=== PATIENT | female | born 1955 | race Caucasian/White ===

== ENCOUNTER 2017-04-04 17:52 | Emergency (ER) | payer MEDICAID ==
[~2017-04-04] VITALS: Ht 162.6 cm; Wt 76.0 kg
[~2017-04-04 17:52] MED LIST: ASPI-515 PO; ATOR20TA9 PO; CETI10TA18 PO; GABA-826 PO; HYDR25TA6 PO; IBUP100T6 PO; LISI-170 PO; METF500T4 PO; METH500T7 PO; METO-99 PO; OXYC-302 PO; RANI150T4 PO; TIZA2TAB PO
[2017-04-04 17:53] VITALS: BP 156/88
== END 2017-04-04 18:39 | disposition home or self-care (01) ==
LOC: ED 18:33
DX: R05 Cough (principal); E78.00 Pure hypercholesterolemia, unspecified; E11.9 Type 2 diabetes mellitus without complications; I10 Essential (primary) hypertension
CPT/HCPCS: 71046; 99284

== ENCOUNTER 2019-01-04 17:13 | Emergency (ER) | payer MEDICAID ==
[~2019-01-04] VITALS: Ht 162.6 cm; Wt 75.6 kg
[~2019-01-04 17:13] MED LIST changes: +ATOR20TA37 PO; -ATOR20TA9 PO; +DULO30CA2 PO; +METF500T17 PO; -METF500T4 PO; +METO25TA35 PO; -TIZA2TAB PO; +TIZA2TAB2 PO
[2019-01-04 17:22] VITALS: BP 171/100
[2019-01-04] MEDS ORDERED: HYDROcodone/APAP 5/325 TABLET PO ONE (18:30)
[2019-01-04] MEDS ORDERED: HYDROcodone/APAP 5/325 TABLET ONE (18:37)
== END 2019-01-04 19:10 | disposition home or self-care (01) ==
LOC: ED 19:03
DX: A69.1 Other Vincent's infections (principal); E11.9 Type 2 diabetes mellitus without complications; E78.00 Pure hypercholesterolemia, unspecified; I10 Essential (primary) hypertension
CPT/HCPCS: 99282

== ENCOUNTER 2019-03-08 12:30 | Emergency (ER) | payer MEDICAID ==
[~2019-03-08] VITALS: Ht 162.6 cm; Wt 74.4 kg
[2019-03-08] MEDS ORDERED: ACETAMINOPHEN 325 MG TABLET PO ONE (13:00)
[2019-03-08 13:25] LABS: RAPID INFLUENZA A POSITIVE (Negative); RAPID INFLUENZA B Negative (Negative)
[2019-03-08 13:28] LABS: ALBUMIN 3.6 g/dL (3.4-5.0); ANION GAP 11 mmol/L (5-15); CALCIUM 8.7 mg/dL (8.5-10.1); CHLORIDE 98 mmol/L (98-107)
[2019-03-08 13:31] LABS: ALANINE AMINOTRANSFERASE 97 U/L (12-78); ALKALINE PHOSPHATASE 116 U/L (45-117); BILIRUBIN,TOTAL 0.5 mg/dL (0.2-1.0); CREATININE 1.77 mg/dL (0.55-1.02); TOTAL PROTEIN 7.9 g/dL (6.4-8.2)
[2019-03-08 14:03] LABS: BASOPHILS # (AUTO) 0.01 x10^3/uL (0-0.1); BASOPHILS % (AUTO) 0 % (0-1); EOSINOPHILS % (AUTO) 0 % (1-7); LYMPHOCYTES # (AUTO) 1.38 x10^3/uL (1-3.4); LYMPHOCYTES % (AUTO) 27 % (22-44); MD NO; MEAN CORPUSCULAR HEMOGLOBIN 31.5 pg (27.0-34.8); MEAN CORPUSCULAR HGB CONC 33.5 g/dL (32.4-35.8); MEAN PLATELET VOLUME 9.1 fL (7.4-10.4); MONOCYTES # (AUTO) 0.27 x10^3/uL (0.2-0.8); MONOCYTES % (AUTO) 5 % (2-9); NEUTROPHILS # (AUTO) 3.45 x10^3/uL (1.8-6.8); NEUTROPHILS % (AUTO) 68 % (42-75); PLATELET COUNT 126 x10^3/uL (130-400); RED BLOOD COUNT 5.85 x10^6/uL (3.82-5.3); RED CELL DISTRIBUTION WIDTH 14.5 % (9.6-15.2)
--- NOTE | 2019-03-08 14:15 | NUR ---
Pt to 40 from lobby. Droplet precautions IP.
[2019-03-08] MEDS ORDERED: ACETAMINOPHEN 325 MG TABLET ONE (14:36)
[2019-03-08 14:44] VITALS: BP 118/59
--- NOTE | 2019-03-08 14:46 | NUR ---
TYLENOL GIVEN PER ERP ORDER. BP CUFF AND PULSE OX IN PLACE. VS UPDATED IN COMPUTER. LAB AND XR RESULTS EXPLAINED TO PT, ALL QUESTIONS ANSWERED. CALL LIGHT WITHIN REACH.
== END 2019-03-08 15:24 | disposition home or self-care (01) ==
LOC: ED 15:10
DX: J10.1 Influenza due to other identified influenza virus with other respiratory manifestations (principal); I10 Essential (primary) hypertension; E11.9 Type 2 diabetes mellitus without complications; E78.00 Pure hypercholesterolemia, unspecified
CPT/HCPCS: 36415; 71046; 80053; 85025; 87400; 99284

== ENCOUNTER 2019-03-19 15:33 | Emergency (ER) | payer MEDICAID ==
[~2019-03-19] VITALS: Ht 162.6 cm; Wt 70.1 kg
[2019-03-19] MEDS ORDERED: MORPHINE SULFATE 4 MG/ML, 1ML ONE ×2 (18:25→20:57)
[2019-03-19] MEDS ORDERED: KETOROLAC 30 MG/1 ML ONE (18:25)
[2019-03-19] MEDS ORDERED: ONDANSETRON 2MG/ML, 2ML ONE (18:25)
[2019-03-19 18:28] LABS: MEAN CORPUSCULAR HEMOGLOBIN 31.3 pg (27.0-34.8); MEAN CORPUSCULAR HGB CONC 33.2 g/dL (32.4-35.8); MEAN CORPUSCULAR VOLUME 94.4 fL (80-100); MEAN PLATELET VOLUME 8.1 fL (7.4-10.4); PLATELET COUNT 324 x10^3/uL (130-400); RED BLOOD COUNT 4.67 x10^6/uL (3.82-5.3); RED CELL DISTRIBUTION WIDTH 14.2 % (9.6-15.2)
[2019-03-19] MEDS ORDERED: ONDANSETRON 2MG/ML, 2ML IVPush ONE (18:30)
[2019-03-19] MEDS ORDERED: SODIUM CHLORIDE FLUSH 10ML SYR IVF ONE (18:30)
[2019-03-19] MEDS ORDERED: KETOROLAC 30 MG/1 ML IVPush ONE (18:30)
[2019-03-19] MEDS ORDERED: SODIUM CHLORIDE 0.9% 1,000ML IVBOLUS ONE (18:30)
[2019-03-19] MEDS: MORPHINE SULFATE 4 MG/ML, 1ML IVPush PRN ×2 (18:42→21:02)
[2019-03-19 18:43] LABS: ALBUMIN 2.6 g/dL (3.4-5.0); ANION GAP 7 mmol/L (5-15); CALCIUM 9.2 mg/dL (8.5-10.1); CHLORIDE 104 mmol/L (98-107)
[2019-03-19 18:51] LABS: ALANINE AMINOTRANSFERASE 48 U/L (12-78); ALKALINE PHOSPHATASE 108 U/L (45-117); BILIRUBIN,TOTAL 0.7 mg/dL (0.2-1.0); CREATININE 1.02 mg/dL (0.55-1.02); TROPONIN I < 0.015 ng/mL (0.000-0.045)
[2019-03-19 18:55] LABS: MD YES
[2019-03-19] MEDS ORDERED: AZITHROMYCIN 500 MG in SODIUM CHLORIDE 0.9% 250 ML IVPB ONE (19:00)
[2019-03-19] MEDS ORDERED: CEFTRIAXONE PMX 1GM/50ML 50 ML IVPB ONE (19:00)
[2019-03-19 19:01] LABS: BAND#(MANUAL) 0.47 x10^3/uL; BANDS%(MANUAL) 3 % (0-7); EOS#(MANUAL) 0.16 x10^3/uL (0.0-0.4); EOS% (MANUAL) 1 % (1-7); LYMPH#(MANUAL) 1.71 x10^3/uL (1-3.4); LYMPHS% (MANUAL) 11 % (22-44); MONOS#(MANUAL) 0.47 x10^3/uL (0.3-2.7); MONOS% (MANUAL) 3 % (2-9); SEG#(MANUAL) 12.71 x10^3/uL (1.8-6.8); SEGS% (MANUAL) 82 % (42-75)
[2019-03-19 19:02] LABS: <PLATELET ESTIMATE> ADEQUATE; <RBC MORPHOLOGY> NORMAL; LARGE PLATELETS 1+
[2019-03-19] MEDS ORDERED: CEFTRIAXONE PMX 1GM/50ML 50 ML ONE (19:28)
[2019-03-19] MEDS ORDERED: POTASSIUM CHLORIDE 20 MEQ TAB.ER.PRT PO ONE (19:30)
[2019-03-19] MEDS ORDERED: POTASSIUM CHLORIDE 20 MEQ TAB.ER.PRT ONE (19:42)
[2019-03-19 20:13] LABS: CULTURE INDICATED? YES; MICROSCOPIC INDICATED
[2019-03-19 20:53] VITALS: BP 104/57
--- NOTE | 2019-03-19 21:02 | NUR ---
REPORT FROM ELISA MCADAMS. PT SITTING UP IN [facility] NOTED. IV ABX CONTINUES TO INFUSE. PT REPORTS 08/30 PAIN. MEDICATED PER EMAR. AWAITING ABX TO FINISH FOR DC.
--- NOTE | 2019-03-19 21:24 | NUR ---
PT REPORTS IMPROVEMENT IN PAIN, 3/10. SPO2 >90% ON RA. RR WNL. DC EDUCATION PROVIDED, PT DEMONSTRATES UNDERSTANDING. PT AMBULATED STEADILY TO DC W RN. DAUGHTER TO TRANSPORT PT HOME.
== END 2019-03-19 21:26 | disposition home or self-care (01) ==
LOC: ED 20:30
DX: J10.08 Influenza due to other identified influenza virus with other specified pneumonia (principal); J15.9 Unspecified bacterial pneumonia; I10 Essential (primary) hypertension; E11.9 Type 2 diabetes mellitus without complications; E78.00 Pure hypercholesterolemia, unspecified; Z86.73 Personal history of transient ischemic attack (TIA), and cerebral infarction without residual deficits; Z87.891 Personal history of nicotine dependence
CPT/HCPCS: 36415; 71045; 80053; 81001; 83605; 84484; 85025; 87040; 87086; 93005; 96365; 96366; 96368; 96375; 96376; 99284; J0456; J0696; J1885; J2270; J2405; J7030; J7050

== ENCOUNTER 2019-05-21 17:06 | Inpatient (IN) | payer MEDICAID ==
[~2019-05-21] VITALS: Ht 162.6 cm; Wt 73.4 kg
--- NOTE | 2019-05-21 18:21 | NUR ---
UTILITY LOCATOR: PT TO ROOM FORM LOBBY
--- NOTE | 2019-05-21 18:23 | NUR ---
PT UP SELF WITH STEADY GAIT TO RR TO PROVIDE UA SAMPLE.
[2019-05-21] MEDS ORDERED: OXYC-302 PO (18:35)
[2019-05-21] MEDS ORDERED: MORPHINE SULFATE 4 MG/ML, 1ML ONE ×2 (18:39→20:18)
[2019-05-21] MEDS ORDERED: ONDANSETRON 2MG/ML, 2ML ONE (18:39)
[2019-05-21] MEDS: MORPHINE SULFATE 4 MG/ML, 1ML IVPush PRN ×2 (18:40→20:21)
--- NOTE | 2019-05-21 18:47 | NUR ---
PT TO ED FOR ABD PAIN AND BLOODY STOOL X4 DAYS. PT INITIALLY THOUGHT SHE WAS CONSTIPATED AND TOOK 2 DULCOLAX WTIH NO RELIEF. PT THEN ATE 2 PIECES OF TOAST AND COFFEE AND PROCEDED TO HAVE BRBPR WTIH LOOSE STOOL. PT ABLE TO AMBULATE WITHOUT ASSISTANCE, BUT UNCHED OVER IN PAIN. PT CONNECTED TO ALL MONITORS. VSS. EDPA AMAN AND EDMD JEANETTE TO BS FOR ASSESSMENT. ORDERS RECEIVED. PIV ESTABLISHED AND LABS DRAWN AND SENT. UA SAMPLE COLELCTED AND SENT. PT MEDICATED PER APR WITH REPORTED DECREASE IN PAIN. AWAITING IMAGING AND RESULTS.
[2019-05-21 18:49] LABS: MEAN CORPUSCULAR HEMOGLOBIN 31.9 pg (27.0-34.8); MEAN CORPUSCULAR HGB CONC 33.6 g/dL (32.4-35.8); MEAN CORPUSCULAR VOLUME 94.8 fL (80-100); MEAN PLATELET VOLUME 8.7 fL (7.4-10.4); PLATELET COUNT 195 x10^3/uL (130-400); RED CELL DISTRIBUTION WIDTH 14.8 % (9.6-15.2)
[2019-05-21 18:51] LABS: MICROSCOPIC NOT IND
[2019-05-21 18:54] LABS: MD YES
[2019-05-21 18:56] LABS: ALANINE AMINOTRANSFERASE 25 U/L (12-78); ALBUMIN 3.3 g/dL (3.4-5.0); ANION GAP 6 mmol/L (5-15); CALCIUM 8.9 mg/dL (8.5-10.1); CHLORIDE 98 mmol/L (98-107); CREATININE 0.99 mg/dL (0.55-1.02)
[2019-05-21 18:58] LABS: CULTURE INDICATED? NO
[2019-05-21 18:59] LABS: ALKALINE PHOSPHATASE 86 U/L (45-117); BILIRUBIN,TOTAL 0.5 mg/dL (0.2-1.0); TOTAL PROTEIN 7.5 g/dL (6.4-8.2)
[2019-05-21] MEDS ORDERED: SODIUM CHLORIDE FLUSH 10ML SYR IVF ONE (19:00)
[2019-05-21] MEDS ORDERED: SODIUM CHLORIDE 0.9% 1,000ML IVBOLUS ONE (19:00)
[2019-05-21] MEDS ORDERED: ONDANSETRON 2MG/ML, 2ML IVPush ONE (19:00)
--- NOTE | 2019-05-21 19:05 | NUR ---
REPORT TO ELISA LABOY.
--- NOTE | 2019-05-21 19:06 | NUR ---
Received report and assumed patient care. Provider informed by previous RN that patient is tolerating PO fluids at the time. civil technician at bedside, awaiting imaging.
[2019-05-21] MEDS ORDERED: OMNIPAQUE 350 MG/ML, 100ML BOTTLE ONE (19:21)
[2019-05-21] MEDS ORDERED: POTASSIUM CHLORIDE 20 MEQ in SODIUM CHLORIDE 0.9% 250 ML IV ONE (19:30)
[2019-05-21 20:01] LABS: BAND#(MANUAL) 0.37 x10^3/uL; BANDS%(MANUAL) 2 % (0-7); BASOS#(MANUAL) 0.19 x10^3/uL (0-0.1); BASOS% (MANUAL) 1 % (0-1); LYMPH#(MANUAL) 3.53 x10^3/uL (1-3.4); LYMPHS% (MANUAL) 19 % (22-44); MONOS#(MANUAL) 1.49 x10^3/uL (0.3-2.7); MONOS% (MANUAL) 8 % (2-9); SEG#(MANUAL) 13.02 x10^3/uL (1.8-6.8); SEGS% (MANUAL) 70 % (42-75)
[2019-05-21 20:02] LABS: <PLATELET ESTIMATE> ADEQUATE; <PLT MORPHOLOGY> NORMAL PLT MORPH; <RBC MORPHOLOGY> NORMAL
[2019-05-21] MEDS ORDERED: MORPHINE SULFATE 4 MG/ML, 1ML IVPush PRN (20:30)
[2019-05-21] MEDS ORDERED: METRONIDAZOLE PMX 500MG/100ML 100 ML IV ONE (20:30)
[2019-05-21] MEDS ORDERED: ONDANSETRON 2MG/ML, 2ML IVPush PRN (20:30)
[2019-05-21] MEDS ORDERED: CIPROFLOXACIN/PMX 400MG/200ML 200 ML IV ONE (20:30)
[2019-05-21] MEDS ORDERED: CIPROFLOXACIN/PMX 400MG/200ML 200 ML ONE (21:18)
[2019-05-21] MEDS ORDERED: METRONIDAZOLE PMX 500MG/100ML 100 ML ONE (21:18)
--- NOTE | 2019-05-21 21:23 | NUR ---
RN to bedside, initiated second peripheral iv. Initiated luiza. Patient then provided with additional analgesic medication. New orders placed for intravenous antibiotics. RN returned to initiate but patient required visit to bathroom. Still states does not need to provide stool. Awaiting admission bed.
--- NOTE | 2019-05-21 21:28 | NUR ---
PER DR. OBRIEN NO COVID TESTING NEEDED FOR THIS PT.
[2019-05-21] MEDS ORDERED: ACETAMINOPHEN 325 MG TABLET PO PRN (21:30)
[2019-05-21] MEDS ORDERED: LABETALOL 5MG/ML, 20ML IVPush PRN (21:30)
[2019-05-21] MEDS ORDERED: CEFTRIAXONE PMX 1GM/50ML 50 ML IV SCH (21:30)
[2019-05-21 21:49] LABS: HCT (SEDRATE) 44.6 % (34.6-47.8)
[2019-05-21 22:30] VITALS: BP 113/74
[2019-05-21] MEDS ORDERED: SODIUM PHOSPHATE 10 MMOL in SODIUM CHLORIDE 0.9% 500 ML IV ONE (23:00)
[2019-05-21] MEDS: VANCOMYCIN 50 MG/ML ORAL SUSP PO SCH (23:13)
[2019-05-21] MEDS: POTASSIUM CHLORIDE 20 MEQ in LACTATED RINGERS 1,000 ML IV SCH (23:33)
[2019-05-21] MEDS: CIPROFLOXACIN/PMX 400MG/200ML 200 ML IV SCH (23:34)
[2019-05-21] MEDS: METRONIDAZOLE PMX 500MG/100ML 100 ML IV SCH (23:36)
[2019-05-22] MEDS: morphine SULFATE 10 MG/ML, 1ML IVPush PRN ×6 (01:17→22:10)
[2019-05-22 01:21] VITALS: BP 112/69
[2019-05-22] MEDS ORDERED: METRONIDAZOLE PMX 500MG/100ML 100 ML IV SCH (04:00)
[2019-05-22] MEDS ORDERED: POTASSIUM CHLORIDE 40 MEQ in SODIUM CHLORIDE 0.9% 500 ML IV ONE ×2 (04:00→06:00)
[2019-05-22] MEDS: VANCOMYCIN 50 MG/ML ORAL SUSP PO SCH ×4 (05:03→22:09)
[2019-05-22 05:44] LABS: BASOPHILS # (AUTO) 0.03 x10^3/uL (0-0.1); BASOPHILS % (AUTO) 0 % (0-1); EOSINOPHILS # (AUTO) 0.12 x10^3/uL (0-0.4); EOSINOPHILS % (AUTO) 1 % (1-7); LYMPHOCYTES # (AUTO) 2.23 x10^3/uL (1-3.4); LYMPHOCYTES % (AUTO) 19 % (22-44); MD NO; MEAN CORPUSCULAR HEMOGLOBIN 32.1 pg (27.0-34.8); MEAN CORPUSCULAR HGB CONC 33.9 g/dL (32.4-35.8); MEAN CORPUSCULAR VOLUME 94.7 fL (80-100); MEAN PLATELET VOLUME 8.7 fL (7.4-10.4); MONOCYTES # (AUTO) 0.61 x10^3/uL (0.2-0.8); MONOCYTES % (AUTO) 5 % (2-9); NEUTROPHILS # (AUTO) 9.07 x10^3/uL (1.8-6.8); NEUTROPHILS % (AUTO) 75 % (42-75); PLATELET COUNT 153 x10^3/uL (130-400); RED BLOOD COUNT 4.15 x10^6/uL (3.82-5.3); RED CELL DISTRIBUTION WIDTH 14.8 % (9.6-15.2)
[2019-05-22 05:53] LABS: ALANINE AMINOTRANSFERASE 62 U/L (12-78); ALBUMIN 2.5 g/dL (3.4-5.0); ANION GAP 6 mmol/L (5-15); CALCIUM 7.8 mg/dL (8.5-10.1); CHLORIDE 108 mmol/L (98-107); CREATININE 0.68 mg/dL (0.55-1.02)
[2019-05-22 05:55] LABS: ALKALINE PHOSPHATASE 82 U/L (45-117); BILIRUBIN,TOTAL 0.6 mg/dL (0.2-1.0); TOTAL PROTEIN 5.7 g/dL (6.4-8.2)
[2019-05-22] MEDS: METRONIDAZOLE PMX 500MG/100ML 100 ML IV SCH ×2 (07:30→16:13)
[2019-05-22] MEDS: DULOXETINE 30 MG CAPSULE.DR PO SCH (08:23)
[2019-05-22 09:00] VITALS: BP 106/69
[2019-05-22] MEDS: CIPROFLOXACIN/PMX 400MG/200ML 200 ML IV SCH ×2 (11:32→23:42)
[2019-05-22] MEDS: POTASSIUM CHLORIDE 20 MEQ in LACTATED RINGERS 1,000 ML IV SCH ×2 (11:32→20:41)
[2019-05-22] MEDS: ONDANSETRON 2MG/ML, 2ML IVPush PRN ×2 (11:43→20:42)
[2019-05-22 15:22] VITALS: BP 125/81
[2019-05-22 16:01] LABS: HCT (SEDRATE) 41.4 % (34.6-47.8)
[2019-05-22 19:29] VITALS: BP 128/79
[2019-05-22] MEDS ORDERED: POTASSIUM CHLORIDE 20 MEQ in SODIUM CHLORIDE 0.9% 250 ML IV ONE (21:00)
[2019-05-23] MEDS: METRONIDAZOLE PMX 500MG/100ML 100 ML IV SCH ×3 (00:18→16:59)
[2019-05-23 00:56] VITALS: BP 126/84
[2019-05-23] MEDS: morphine SULFATE 10 MG/ML, 1ML IVPush PRN ×5 (02:59→20:02)
[2019-05-23] MEDS: VANCOMYCIN 50 MG/ML ORAL SUSP PO SCH ×2 (04:18→11:44)
[2019-05-23 06:21] LABS: BASOPHILS # (AUTO) 0.03 x10^3/uL (0-0.1); BASOPHILS % (AUTO) 0 % (0-1); EOSINOPHILS % (AUTO) 1 % (1-7); LYMPHOCYTES % (AUTO) 20 % (22-44); MD NO; MEAN CORPUSCULAR HEMOGLOBIN 31.9 pg (27.0-34.8); MEAN CORPUSCULAR HGB CONC 33.1 g/dL (32.4-35.8); MEAN CORPUSCULAR VOLUME 96.4 fL (80-100); MEAN PLATELET VOLUME 8.5 fL (7.4-10.4); MONOCYTES % (AUTO) 6 % (2-9); NEUTROPHILS # (AUTO) 7.92 x10^3/uL (1.8-6.8); NEUTROPHILS % (AUTO) 73 % (42-75); PLATELET COUNT 169 x10^3/uL (130-400); RED CELL DISTRIBUTION WIDTH 14.3 % (9.6-15.2)
[2019-05-23 06:30] LABS: OCCULT BLOOD POSITIVE (NEGATIVE)
[2019-05-23 06:33] LABS: ANION GAP 5 mmol/L (5-15); CALCIUM 7.7 mg/dL (8.5-10.1); CHLORIDE 110 mmol/L (98-107); CREATININE 0.53 mg/dL (0.55-1.02)
[2019-05-23 06:49] LABS: STOOL FOR LEUKOCYTES FEW (2-5/HPF) (NEGATIVE)
[2019-05-23] MEDS: ONDANSETRON 2MG/ML, 2ML IVPush PRN ×2 (07:41→19:58)
[2019-05-23] MEDS: DULOXETINE 30 MG CAPSULE.DR PO SCH (07:41)
[2019-05-23 07:49] VITALS: BP 117/77
[2019-05-23] MEDS: POTASSIUM CHLORIDE 20 MEQ in LACTATED RINGERS 1,000 ML IV SCH ×2 (08:25→19:57)
[2019-05-23 08:50] LABS: CLOSTRIDIUM DIFFICILE ANTIGEN NEGATIVE; CLOSTRIDIUM DIFFICILE TOXIN NEGATIVE (Negative)
[2019-05-23 09:57] LABS: ALANINE AMINOTRANSFERASE 65 U/L (12-78); ALBUMIN 2.4 g/dL (3.4-5.0); ANION GAP 9 mmol/L (5-15); CALCIUM 7.8 mg/dL (8.5-10.1); CHLORIDE 111 mmol/L (98-107); CREATININE 0.56 mg/dL (0.55-1.02)
[2019-05-23 09:59] LABS: ALKALINE PHOSPHATASE 88 U/L (45-117); BILIRUBIN,TOTAL 0.4 mg/dL (0.2-1.0); TOTAL PROTEIN 5.6 g/dL (6.4-8.2)
[2019-05-23] MEDS: CIPROFLOXACIN/PMX 400MG/200ML 200 ML IV SCH ×2 (11:44→23:22)
[2019-05-23 12:59] VITALS: BP 125/80
[2019-05-23 18:44] VITALS: BP 131/79
[2019-05-24] MEDS: morphine SULFATE 10 MG/ML, 1ML IVPush PRN ×6 (00:11→22:56)
[2019-05-24] MEDS: METRONIDAZOLE PMX 500MG/100ML 100 ML IV SCH ×3 (01:28→18:08)
[2019-05-24] MEDS: ONDANSETRON 2MG/ML, 2ML IVPush PRN ×2 (02:34→22:55)
[2019-05-24 03:00] VITALS: BP 119/68
[2019-05-24 07:06] VITALS: BP 144/76
[2019-05-24] MEDS ORDERED: FENTANYL PF 100 MCG/2ML IV PRN (07:30)
[2019-05-24] MEDS ORDERED: MEPERIDINE/PF 25MG/ML,1ML IVPush PRN (07:30)
[2019-05-24] MEDS ORDERED: FENTANYL PF 100 MCG/2ML ONE (07:36)
[2019-05-24] MEDS ORDERED: PROPOFOL 10 MG/ML, 20ML ONE ×2 (07:54→12:17)
[2019-05-24] MEDS ORDERED: DEXAMETHASONE 4 MG/ML, 1ML ONE ×2 (07:54→12:17)
[2019-05-24] MEDS ORDERED: ROCURONIUM 10 MG/ML,10ML ONE (07:54)
[2019-05-24] MEDS ORDERED: ONDANSETRON 2MG/ML, 2ML ONE ×2 (07:54→12:17)
[2019-05-24] MEDS ORDERED: SUCCINYLCHOLINE 20 MG/ML, 10ML ONE ×2 (07:54→12:17)
[2019-05-24 08:22] LABS: ALANINE AMINOTRANSFERASE 105 U/L (12-78); ALBUMIN 2.7 g/dL (3.4-5.0); ANION GAP 8 mmol/L (5-15); CALCIUM 8.2 mg/dL (8.5-10.1); CHLORIDE 107 mmol/L (98-107); CREATININE 0.58 mg/dL (0.55-1.02)
[2019-05-24 08:24] LABS: ALKALINE PHOSPHATASE 139 U/L (45-117); BILIRUBIN,TOTAL 0.5 mg/dL (0.2-1.0); TOTAL PROTEIN 6.2 g/dL (6.4-8.2)
[2019-05-24] MEDS: DULOXETINE 30 MG CAPSULE.DR PO SCH (10:21)
[2019-05-24] MEDS: POTASSIUM CHLORIDE 20 MEQ in LACTATED RINGERS 1,000 ML IV SCH (11:10)
[2019-05-24] MEDS: CIPROFLOXACIN/PMX 400MG/200ML 200 ML IV SCH ×2 (12:10→22:56)
[2019-05-24] MEDS ORDERED: NEOSTIGMINE 1 MG/ML, 10ML ONE (12:17)
[2019-05-24] MEDS ORDERED: CEFAZOLIN 1,000 MG ONE (12:17)
[2019-05-24] MEDS ORDERED: GLYCOPYRROLATE 0.2MG/1ML, 5ML ONE (12:17)
[2019-05-24] MEDS ORDERED: ROCURONIUM 10MG/ML,5ML ONE (12:17)
[2019-05-24 13:31] VITALS: BP 123/80
[2019-05-24] MEDS ORDERED: POTASSIUM CHLORIDE 20 MEQ TAB.ER.PRT PO ONE (14:00)
[2019-05-24 18:19] VITALS: BP 119/74
[2019-05-25] MEDS: METRONIDAZOLE PMX 500MG/100ML 100 ML IV SCH ×2 (02:21→10:31)
[2019-05-25 02:25] VITALS: BP 135/79
[2019-05-25] MEDS: morphine SULFATE 10 MG/ML, 1ML IVPush PRN ×3 (03:08→12:00)
[2019-05-25 05:56] LABS: BASOPHILS # (AUTO) 0.03 x10^3/uL (0-0.1); BASOPHILS % (AUTO) 0 % (0-1); EOSINOPHILS # (AUTO) 0.05 x10^3/uL (0-0.4); EOSINOPHILS % (AUTO) 1 % (1-7); LYMPHOCYTES # (AUTO) 2.12 x10^3/uL (1-3.4); LYMPHOCYTES % (AUTO) 21 % (22-44); MD NO; MEAN CORPUSCULAR HEMOGLOBIN 31.7 pg (27.0-34.8); MEAN CORPUSCULAR HGB CONC 33.1 g/dL (32.4-35.8); MEAN CORPUSCULAR VOLUME 95.7 fL (80-100); MEAN PLATELET VOLUME 8.9 fL (7.4-10.4); MONOCYTES # (AUTO) 0.68 x10^3/uL (0.2-0.8); MONOCYTES % (AUTO) 7 % (2-9); NEUTROPHILS # (AUTO) 7.28 x10^3/uL (1.8-6.8); NEUTROPHILS % (AUTO) 72 % (42-75); PLATELET COUNT 196 x10^3/uL (130-400); RED BLOOD COUNT 3.86 x10^6/uL (3.82-5.3); RED CELL DISTRIBUTION WIDTH 14.3 % (9.6-15.2)
[2019-05-25 06:05] LABS: ALANINE AMINOTRANSFERASE 73 U/L (12-78); ALBUMIN 2.6 g/dL (3.4-5.0); ANION GAP 6 mmol/L (5-15); CALCIUM 8.3 mg/dL (8.5-10.1); CHLORIDE 107 mmol/L (98-107)
[2019-05-25 06:07] LABS: ALKALINE PHOSPHATASE 113 U/L (45-117); BILIRUBIN,TOTAL 0.5 mg/dL (0.2-1.0)
[2019-05-25 07:03] VITALS: BP 113/75
[2019-05-25] MEDS: DULOXETINE 30 MG CAPSULE.DR PO SCH (07:56)
[2019-05-25] MEDS ORDERED: LISINOPRIL 20 MG TABLET PO SCH (09:00)
[2019-05-25 10:52] LABS: ALANINE AMINOTRANSFERASE 73 U/L (12-78); ALBUMIN 2.7 g/dL (3.4-5.0); ANION GAP 3 mmol/L (5-15); CALCIUM 8.5 mg/dL (8.5-10.1); CHLORIDE 107 mmol/L (98-107); CREATININE 0.88 mg/dL (0.55-1.02)
[2019-05-25 10:53] LABS: ALKALINE PHOSPHATASE 109 U/L (45-117); BILIRUBIN,TOTAL 0.2 mg/dL (0.2-1.0)
[2019-05-25] MEDS: CIPROFLOXACIN/PMX 400MG/200ML 200 ML IV SCH (11:59)
[2019-05-25] MEDS ORDERED: CIPR250T27 PO (12:51)
[2019-05-25] MEDS ORDERED: METR-90 PO (12:51)
[2019-05-25] MEDS ORDERED: OXYC-302 PO (12:51)
[2019-05-25 13:18] VITALS: BP 132/65
== END 2019-05-25 15:06 | disposition home or self-care (01) | DRG 249 ==
LOC: ED 18:55 → SUATTDRO 20:39 → EDIP 20:55 → 3N 22:20
PROVIDERS: ADMIT Hospitalist; ATTEND Hospitalist
DX: A09 Infectious gastroenteritis and colitis, unspecified (principal); K80.70 Calculus of gallbladder and bile duct without cholecystitis without obstruction; I10 Essential (primary) hypertension; E11.9 Type 2 diabetes mellitus without complications; E78.00 Pure hypercholesterolemia, unspecified; E87.6 Hypokalemia; M79.7 Fibromyalgia; E86.0 Dehydration; M19.90 Unspecified osteoarthritis, unspecified site; G47.33 Obstructive sleep apnea (adult) (pediatric); E78.5 Hyperlipidemia, unspecified; Z86.73 Personal history of transient ischemic attack (TIA), and cerebral infarction without residual deficits; Z87.891 Personal history of nicotine dependence; Z90.49 Acquired absence of other specified parts of digestive tract; Z90.710 Acquired absence of both cervix and uterus; Z88.8 Allergy status to other drugs, medicaments and biological substances; Z79.899 Other long term (current) drug therapy; Z85.820 Personal history of malignant melanoma of skin
CPT/HCPCS: 36415; 74177; 74181; 74328; 80048; 80053; 81003; 82272; 83605; 83690; 83735; 84100; 85014; 85018; 85025; 85651; 86140; 87040; 87046; 87324; 89055; 93005; 96374; G0378; J0690; J0744; J1100; J2405; J2704; J2710; J3010; J3370; J3480; Q9967; C1769; J0330; J2270; J7030; J7040; J7050; J7120